=== PATIENT | female | born 1955 | race Caucasian/White ===

== ENCOUNTER 2022-10-08 09:06 | Outpatient (REF) | payer OTHER, SELFPAY ==
[2022-07-22 07:30] VITALS: BP 106/64; BP 132/70
[2022-09-15 10:17] VITALS: BP 106/64; BMI 37.0
[2022-10-08 10:01] LABS: Estimated Average Glucose 174 mg/dL; Hemoglobin A1c % 7.7 %
[2022-10-08 10:26] LABS: Anion Gap 10 (12-20); Blood Urea Nitrogen 19 mg/dL (9-16); Calcium 10.8 mg/dL (8.4-10.2); Carbon Dioxide 24 mmol/L (22-29); Chloride 107 mmol/L (96-108); Cholesterol 116 mg/dL; Estimated Glomerular Filt Rate > 60; Glucose Random 208 mg/dL (60-115); HDL Cholesterol 48 mg/dL; LDL Cholesterol Calculated 43 mg/dl; Potassium 4.2 mmol/L (3.3-5.1); Sodium 137 mmol/L (135-145); Triglycerides 128 mg/dL
[2022-10-08 10:40] LABS: Creatinine Urine 140.08 mg/dL; Microalbum/Creatinine Ratio Ur 71.3 ug/mg cr
[2022-10-08 10:40] LABS: Thyroid Stimulating Hormone 0.04 uIU/mL (0.32-4.0)
== END 2022-10-08 09:07 | disposition home or self-care (01) ==
LOC: HO.LAB 09:06
PROVIDERS: PCP Nurse Practitioner; Visit Provider Nurse Practitioner
DX: E03.9 Hypothyroidism, unspecified (principal); I10 Essential (primary) hypertension; E11.40 Type 2 diabetes mellitus with diabetic neuropathy, unspecified
CPT/HCPCS: 36415; 80048; 80061; 82043; 83036; 84443

== ENCOUNTER 2022-10-24 09:17 | Outpatient (REF) | payer OTHER, SELFPAY ==
[2022-07-22 07:30] VITALS: BP 106/64; BP 132/70
[2022-10-15 15:45] VITALS: BP 98/54; BMI 37.0
--- NOTE | ~2022-10-24 | MM_ITS ---
EXAMINATION: BONE DENSITOMETRY CLINICAL INDICATION: Menopause. COMPARISON: This is the patient's baseline examination. TECHNIQUE: Using a [employer] DXA System (software version: 13.1) manufactured by [employer], dual-energy x-ray absorptiometry was performed of the lumbar spine and left hip. The images are of good technical quality. Summary results are attached. FINDINGS: LEFT FEMUR, NECK: BMD 0.793 g/cm2, Z-score -0.9, T-score -1.8, osteopenia. LEFT FEMUR, TOTAL: BMD 0.885 g/cm2, Z-score -0.5, T-score -1.0, normal. AP SPINE L1-L4: There is falsely elevated bone mineral density related to degenerative change at multiple levels. BMD 1.645 g/cm2, Z-score 4.4, T-score 3.9, normal. IDENTIFIED RISK FACTORS: Height loss, thiazide, menopause. HISTORY OF FRACTURE: None listed. MEDICATIONS: Multivitamin. MM/XR DEXA axial skeleton IMPRESSION: 1. DIAGNOSIS: Osteopenia based on the lowest T-score value of -1.8 in the femoral neck applying World Health Organization criteria. 2. 10-YEAR FRACTURE RISK PREDICTION, FRAX: Major osteoporotic fracture (clinical spine, forearm, hip or shoulder) 9.1%. Hip fracture 1.1%. 3. Treatment Recommendations: NOF guidelines recommend consideration for treatment in postmenopausal women and men age 50 and older presenting with the following: -A hip or vertebral (clinical or morphometric) fracture. -T-score less than or equal to -2.5 at the femoral neck or spine after appropriate evaluation to exclude secondary causes. -Low bone mass at the hip or spine and a 10-year fracture probability by FRAX of greater than or equal to 3% for hip fracture or greater than or equal to 20% for major osteoporotic fracture based on the [place] adapted WHO algorithm. 4. Other Recommendations: All treatment decisions require clinical judgment and consideration of individual patient factors, including patient preferences, comorbidities, previous drug use, risk factors not captured in the FRAX model (e.g. frailty, falls, vitamin D deficiency, increased bone turnover, interval significant decline in bone density) and possible under or overestimation of fracture risk by FRAX. Additional medical evaluation for secondary cause of low bone mineral density may be appropriate. FUTURE SCAN RECOMMENDATION: People with diagnosed cases of osteoporosis or at high risk for fracture should have regular bone mineral density tests. For patients eligible for Medicare, routine testing is allowed once every 2 years. The testing frequency can be increased to one year for patients who have rapidly progressing disease, those who are receiving or discontinuing medical therapy to restore bone mass, or have additional risk factors.
== END 2022-10-24 09:18 | disposition home or self-care (01) ==
LOC: HO.MAMMO 09:17
PROVIDERS: PCP Nurse Practitioner; Visit Provider Nurse Practitioner
DX: Z13.820 Encounter for screening for osteoporosis (principal); Z78.0 Asymptomatic menopausal state
CPT/HCPCS: 77080

== ENCOUNTER 2022-12-12 13:08 | Outpatient (REF) | payer OTHER, SELFPAY ==
[2022-12-01 15:40] VITALS: BP 104/58; BP 106/64; BP 132/70; BMI 37.0
[2022-12-12 14:54] LABS: Thyroid Stimulating Hormone 0.19 uIU/mL (0.32-4.0)
== END 2022-12-12 13:09 | disposition home or self-care (01) ==
LOC: HO.LAB 13:08
PROVIDERS: Visit Provider Nurse Practitioner
DX: E03.9 Hypothyroidism, unspecified (principal)
CPT/HCPCS: 36415; 84443